=== PATIENT | female | born 2000 | race Caucasian/White ===

== ENCOUNTER 2025-04-05 15:40 | Emergency (ER) | payer MEDICAID ==
[~2025-04-05] VITALS: Ht 149.9 cm; Wt 56.4 kg
[2025-04-05 16:13] VITALS: BP 97/74; PULSE 73; RESP 16; O2SAT 100
--- NOTE | 2025-04-05 19:59 | Physician Documentation ---
History of Present Illness ~ Chief Complaint: STD Stated Complaint: STD TESTING Time Seen by MD: 19:20 [facility] [employer] 24-year-old female presents to the ED with a complaint of requesting STD testing. She states she had unprotected sex yesterday evening while intoxicated some in his concerned about frank a sexually transmitted disease Unfortunately this was her 1st toe on central experienceLeading her to be concerned about the possible ramifications Day of Onset: Apr 05, 2025 Medication Reconciliation Allergies: Coded Allergies: No Known Allergies (Unverified , 04/05/25) Review of Systems All Other Systems at this time: Reviewed and Negative ROS As stated above in the HPI, otherwise all systems are reviewed and negative. Physical Exam Vital Signs: Temperature: 97.6, Source: Temporal, Heart Rate: 73, Respiratory Rate: 16, BP: 97/74, Pulse Oximetry: 100, Weight: 56.400 Oxygen Flow Rate: 0 Physical Exam General: Alert, no apparent distress. HEENT: PERRL, EOMI, no injection, moist mucous membranes. Neck: Full range of motion. Respiratory: Lungs clear, no respiratory distress. genitourinary: deferred Psychiatric: Normal mood and affect. Skin: Normal color, warm and dry. No edema, no ecchymosis. Progress Results/Orders Results/Orders Vital Signs 04/05/25 04/05/25 16:13 20:05 Temp 97.6 97.6 Pulse 73 Resp 16 B/P (MAP) 97/74 Pulse Ox 100 O2 Flow Rate 0 Medical Decision Making Findings Explained to the patient that yesterday evening is not enough time for bacteria to grow towards she can be tested her for gonorrhea or chlamydia were to return in 2-4 days if she continues to have concerns or develops symptoms per Urinary Diff Dx:Considerations: Include: AAA, , Aortic dissection, Appendicitis, Bowel obstruction, Cholelithiasis, Choleangitis, DJD, Ectopic , Hepatitis, HNP, Impaction, Intrauterine , Musculoskeletal pain, Ovarian torsion, Pancreatitis, PID, Post-Op complication, Pyelonephritis, Renal failure, Strain, Urinary Obstruction, Urolithiasis, Urinary retention, UTI, Vaginitis, Other Departure Disposition: HOME / SELF CARE / HOMELESS Impression: Primary Impression: Sexually transmitted disease Discharge Instructions: and Sexually Transmitted Infections Referrals: NO PRIMARY CARE PROVIDER (PCP) Signature Scribe Signature: f Attestation: Scribed for Dolores Dumas Np by Dolores Souza NP . 04/05/25 21:51 DOLORES DUMAS NP Apr 05, 2025 19:59
[2025-04-05 20:05] VITALS: TEMP 97.6
== END 2025-04-05 20:07 | disposition home or self-care (01) ==
LOC: ER 15:42
DX: A64 Unspecified sexually transmitted disease (principal)
CPT/HCPCS: 99282